=== PATIENT | male | born 2000 | race Caucasian/White ===

== ENCOUNTER 2021-01-01 14:41 | Emergency (ER) | payer OTHER ==
[~2021-01-01] VITALS: Ht 172.7 cm; Wt 61.4 kg
[2021-01-01 14:48] VITALS: BP 144/73; TEMP 97.5
[2021-01-01 15:36] LABS: ALBUMIN 5.1 gm/dL (3.5-5.0); BASO % 0.4 % (0.0-2.0); BILIRUBIN,TOTAL 0.8 mg/dL (0.0-1.0); CALCIUM 10.1 mg/dL (8.4-10.2); CREATININE, serum 0.93 (0.66-1.25); EOS # 0.1 (0.0-0.7); EOS % 0.9 % (0-4.0); GRAN # 2.4 (1.4-6.5); GRAN % 42.9 % (42.2-75.2); HEMATOCRIT 48.5 % (36.0-47.0); HEMOGLOBIN 17.2 g/dl (12.5-16.1); LYMPH # 2.5 (1.2-3.4); MEAN CELL VOLUME 86 fl (80.0-95.0); MEAN CORPUSCULAR HEMOGLOBIN 31 pg (26.0-32.0); MEAN CORPUSCULAR HGB CONC 36 g/dl (33.0-37.0); MEAN PLATELET VOLUME 11.6 fl (7.4-10.4); MONO # 0.6 (0.1-0.6); MONO % 10.6 % (1.7-9.3); PLATELET COUNT 189 K/mm3 (130-400); POTASSIUM 3.9 mmol/L (3.4-5.0); RED BLOOD COUNT 5.64 M/mm3 (4.20-5.60); REDCELL DISTRIBUTION WIDTH-CV 11.9 % (11.5-14.5); TOTAL PROTEIN 8.4 gm/dL (6.4-8.2)
[2021-01-01 16:26] VITALS: PULSE 59
== END 2021-01-01 16:25 | disposition home or self-care (01) ==
LOC: COL.ER 14:41
PROVIDERS: Emergency Medicine
DX: K62.5 Hemorrhage of anus and rectum (principal)